=== PATIENT | female | born 1970 | race Caucasian/White ===

== ENCOUNTER 2016-11-14 12:44 | Emergency (ER) | payer MEDICAID ==
[~2016-11-14] VITALS: Wt 69.0 kg
[~2016-11-14 12:44] MED LIST: ACET1TAB40 PO; AZIT250T94 PO; BISM262O23 PO; CETI10CA PO; POLY10DR19 BOTH EYES; PREN-39 PO; ZOF8 PO
[2016-11-14] MEDS ORDERED: KETOROLAC 60 MG INJ IM STA (13:18)
--- NOTE | 2016-11-14 13:47 | ERD ---
ER Documentation Chief Complaint Date/Time DATE: 11/14/16 TIME: 13:46 Chief Complaint back pain no trauma no dysuria onset about 2 wks ago. HPI This is a 46-year-old female presents to the ER with back pain that started 2 weeks ago. Patient states that back pain is worse whenever she bends over whenever she moves. Patient denies any trauma. 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 Patient denies any cough or cold symptoms. She denies any chest pain or shortness of breath. Patient denies any flank pain , urinary frequency or dysuria. Patient states that back pain is sharp in quality the pain is constant. Patient has not tried anything for the pain. ROS 12 point review of systems was done, all negative except per HPI. Medications Home Meds Active Scripts Ibuprofen* (Motrin*) 600 Mg Tab, 600 MG PO Q6, #30 TAB Prov:BERNICE WETZEL 11/14/16 Orphenadrine Citrate (Norflex) 100 Mg Tablet.sa, 100 MG PO BID for 3 Days, TAB.SA Prov:BERNICE WETZEL 11/14/16 Polymyxin B Sulfate-TMP* (Polymyxin B-TMP Eye Drops*) 10 Ml Drops, 1 DROP BOTH EYES QID for 10 Days, EA Prov:IZABELA VACA MD 01/14/16 Cetirizine Hcl* (Zyrtec*) 10 Mg Capsule, 10 MG PO DAILY, #15 TAB.CHEW Prov:IZABELA VACA MD 01/14/16 Bismuth Subsalicylate* (Pepto-Bismol*) 262 Mg/15 Ml Oral.susp, 15 ML PO Q3H Y for DIARRHEA for 5 Days, ML Prov:IZABELA VACA MD 06/18/15 Acetaminophen-Codeine* (Acetaminophen-Cod #3*) 300-30 Mg Tab, 1 TAB PO Q4H Y for PAIN, #10 TAB Prov:IZABELA VACA MD 06/18/15 Azithromycin* (Zithromax*) 250 Mg Tablet, 250 MG PO .ZPACK DIRECTED, #6 TAB TAKE 500 MG (2 TABS) THE FIRST DAY THEN 250 MG (1 TAB) DAYS 2-5 Prov:IZABELA VACA MD 06/18/15 Ondansetron Hcl* (Zofran* ODT) 8 mg -ODT Tab.disper, 8 MG PO Q6H Y for NAUSEA AND OR VOMITING, #10 TAB Prov:IZABELA VACA MD 06/18/15 Reported Medications Vits W-Ca,Fe,Fa(<1MG) ( Vitamins) 1 Tab Tablet, 1 TAB PO DAILY 07/04/13 Allergies Allergies: Coded Allergies: No Known Allergy (Unverified , 01/14/16) PMhx/Soc History of Surgery: No Anesthesia Reaction: No Hx Neurological Disorder: No Hx Respiratory Disorders: No Hx Cardiac Disorders: No Hx Psychiatric Problems: No Hx Miscellaneous Medical Probl: No Hx Alcohol Use: No Hx Substance Use: No Hx Tobacco Use: No Physical Exam Vitals Vital Signs Date Time Temp Pulse Resp B/P Pulse Ox O2 Delivery O2 Flow Rate FiO2 11/14/16 12:54 98.7 98 21 124/58 98 Physical Exam GENERAL: The patient is well developed and appropriate for usual state of health , in no apparent distress. NECK: C-spine is soft and supple. There is no cervical lymphadenopathy. CHEST: Clear to auscultation bilaterally. There are no rales, wheezes or rhonchi. HEART: Regular rate and rhythm. No murmurs, clicks, rubs or gallops. ABDOMEN: Soft, nontender and nondistended. Good bowel sounds. No rebound or guarding. No gross peritonitis. No gross organomegaly or masses. No Pompa sign or McBurney point tenderness. No pulsatile abdominal mass. BACK: No midline or flank tenderness. Tender to palpation from T2-T4. Tense paraspinal muscles. Negative leg raise test. No step- offs. NEURO: Alert and oriented. SKIN: There is no apparent rash or petechia. The skin is warm and dry. Results 24 hrs Laboratory Tests Test 11/14/16 14:58 Bedside Urine pH (LAB) 7.0 Bedside Urine Protein (LAB) Negative Bedside Urine Glucose (UA) Negative Bedside Urine Ketones (LAB) Negative Bedside Urine Blood Negative Bedside Urine Nitrite (LAB) Negative Bedside Urine Leukocyte Esterase (L Negative Current Medications Medications (Trade) Dose Ordered Sig/Earnest Route PRN Reason Start Time Stop Time Status Last Admin Dose Admin Ketorolac Tromethamine (Toradol) 60 mg ONCE STAT IM 11/14/16 13:18 11/14/16 13:20 DC 11/14/16 14:46 Procedures/MDM Differential Diagnosis includes but is not limited to back strain, vertebral fracture, epidural abscess, cauda equina, herniated disc, AAA rupture, kidney stones, UTI, pyelonephritis. This is a 46-year-old female presents to the ER with mid back pain. At this time is no evidence of fracture or dislocation. Suspicion for pneumonia or any other intrathoracic abnormality is low. Suspicion for kidney involvement is low. This is likely muscular strain, pain is worse whenever patient is bending down or moving. Patient is afebrile and well-appearing. Patient will be sent home with ibuprofen and Norflex. She is to follow-up with her primary care doctor in 2 days or return to ER sooner if symptoms worsen. My medical decision making shared with the patient and agrees with plan. Departure Diagnosis: Primary Impression: Back pain Condition: Stable BERNICE WETZEL November 14, 2016 13:47
--- NOTE | 2016-11-14 14:22 | RADRPT ---
PROCEDURE: XR Chest AP portable CLINICAL INDICATION: Back pain TECHNIQUE: An AP portable radiograph of the chest was submitted. COMPARISON: None. FINDINGS: Support Hardware: None Cardiovascular: The cardiovascular silhouette appears unremarkable. A fat pad is seen off the cardia c apex. Lung Isaac: The lung isaac appear clear with no nodule, alveolar infiltrate, or interstitial promi nence evident. Pleural Spaces: No pneumothorax or pleural effusion is identified. Osseous Structures: Mild degenerative endplate changes are seen to the thoracic spine. Soft Tissues: The soft tissues appear unremarkable. IMPRESSION: 1. Mild degenerative thoracic spine changes. 2. Otherwise, unremarkable portable chest. Physician Wolf Date Time Electronically viewed and signed by Physician Wolf on 11/14/2016 14:22 /
--- NOTE | 2016-11-14 14:23 | RADRPT ---
PROCEDURE: XR Thoracic Spine CLINICAL INDICATION: Fall TECHNIQUE: 3 Views of the thoracic spine were submitted. COMPARISON: None FINDINGS: The osseous structures appear well mineralized and intact. No fracture or destructive process is ev ident. Very minimal degenerative endplate changes noted. The osseous elements align satisfactorily without subluxation. The disk spaces are adequately maintained. IMPRESSION: 1. Minimal degenerative endplate changes 2. Otherwise, unremarkable thoracic spine series. Physician Wolf Date Time Electronically viewed and signed by Vanessa Kenny Physician on 11/14/2016 14:23 /
[2016-11-14 14:57] LABS: URINE BLOOD (Dip) POC Negative (NEGATIVE)
[2016-11-14] MEDS ORDERED: ORPH100T PO (14:58)
[2016-11-14] MEDS ORDERED: IBUP-1542 PO (14:59)
== END 2016-11-14 15:04 | disposition home or self-care (01) ==
LOC: FTE 12:44
DX: M54.9 Dorsalgia, unspecified (principal)
CPT/HCPCS: 71010; 72072; 81003; J1885; 96372

== ENCOUNTER 2017-02-26 17:44 | Emergency (ER) | payer MEDICAID ==
[~2017-02-26] VITALS: Ht 157.5 cm; Wt 89.0 kg
[~2017-02-26 17:44] MED LIST changes: +IBUP-1542 PO; +ORPH100T PO
[2017-02-26 17:48] VITALS: Ht 157.5 cm; Wt 89.0 kg
[2017-02-26] MEDS ORDERED: KETOROLAC 30 MG INJ IV STA (18:01)
[2017-02-26] MEDS ORDERED: SOD CHLORIDE 0.9% 1,000 ML IV STA (18:01)
[2017-02-26 18:30] LABS: ADD UMIC YES; UR ASCORBIC ACID NEGATIVE (NEGATIVE); UR BACTERIA FEW /HPF (NONE SEEN); UR BILIRUBIN (Dip) NEGATIVE (NEGATIVE); UR BLOOD (Dip) 2+ mg/dL (NEGATIVE); UR CLARITY CLEAR (CLEAR); UR COLOR STRAW (YELLOW); UR GLUCOSE (Dip) NEGATIVE (NEGATIVE); UR KETONES (Dip) NEGATIVE (NEGATIVE); UR LEUKOCYTE ESTERASE (Dip) NEGATIVE Leu/ul (NEGATIVE); UR NITRITE (Dip) NEGATIVE (NEGATIVE); UR RBC 0 /HPF (0-5); UR SPECIFIC GRAVITY (Dip) 1.005 (1.003-1.030); UR SQUAMOUS EPITHELIAL CELL FEW /HPF (FEW); UR TOTAL PROTEIN (Dip) NEGATIVE (NEGATIVE); UR UROBILINOGEN (Dip) NEGATIVE (NEGATIVE)
[2017-02-26 18:33] LABS: BASOPHILS % 0.3 % (0.0-2.0); EOSINOPHILS # 0.2 10^3/ul (0.0-0.5); EOSINOPHILS % 2.6 % (0.0-7.0); HEMATOCRIT 33.5 % (37.0-47.0); HEMOGLOBIN 10.4 g/dl (12.0-16.0); LYMPHOCYTES # 1.8 10^3/ul (0.8-2.9); LYMPHOCYTES % 29.3 % (15.0-51.0); MEAN CORPUSCULAR HEMOGLOBIN 23.1 pg (29.0-33.0); MEAN CORPUSCULAR VOLUME 74.4 fl (82.0-101.0); MEAN PLATELET VOLUME 9.5 fl (7.4-10.4); MONOCYTE # 0.5 10^3/ul (0.3-0.9); MONOCYTES % 7.5 % (0.0-11.0); PLATELET COUNT 224 10^3/UL (140-415); RED CELL DISTRIBUTION WIDTH 17.4 % (11.5-14.5); WHITE BLOOD COUNT 6.3 10^3/ul (4.8-10.8)
--- NOTE | 2017-02-26 18:34 | RADRPT ---
PROCEDURE: Right upper quadrant ultrasound CLINICAL INDICATION: Abdominal pain TECHNIQUE: Multiple real-time images were acquired of the patient's abdomen and right retroperiton eum utilizing a high resolution transducer. COMPARISON: None FINDINGS: The liver is increased in echogenicity and measures 17.2 cm. No focal hepatic masses are seen. The gallbladder is physiologically distended. There is no evidence of gallstones, gallbladder wall thi ckening, or pericholecystic fluid. The intra and extrahepatic bile ducts are normal in caliber. Th e common bile duct measures 4.8 mm. Midline images demonstrate the pancreas head to be normal in echogenicity without obvious inflammato ry change. The body and tail are suboptimally seen. Survey views of the right kidney demonstrate no evidence of hydronephrosis or renal calculi. The ri ght kidney measures 10.6 cm. There is questionable perinephric fluid seen on the single image. IMPRESSION: 1. No evidence of cholelithiasis or acute cholecystitis. 2. Fatty change liver 3. Questionable perinephric fluid seen only on a single image. This could suggest pyelonephritis in the right clinical setting. Recommend correlation with urinalysis. 4. Pancreas suboptimally seen RPTAT: HH .Tigre Jalloh MD, Date Time Electronically viewed and signed by .Tigre Jalloh MD, on 02/26/2017 18:34 .W/
[2017-02-26 19:01] LABS: ALBUMIN 4.4 g/dl (3.3-4.9); ALBUMIN/GLOBULIN RATIO 1.15; BILIRUBIN,INDIRECT 0.2 mg/dl (0-1.1); BILIRUBIN,TOTAL 0.2 mg/dl (0.2-1.3); CALCIUM 9.1 mg/dl (8.4-10.2); CREATININE 0.52 mg/dl (0.44-1.00); TOTAL PROTEIN 8.2 g/dl (6.1-8.1)
[2017-02-26] MEDS ORDERED: IOHEXOL 300MG/ML 150 ML BTL ONE (20:09)
[2017-02-26] MEDS ORDERED: SOD CHLORIDE 0.9% 100 ML ONE (20:09)
--- NOTE | 2017-02-26 21:22 | RADRPT ---
PROCEDURE: CT Abdomen and Pelvis with contrast. CLINICAL INDICATION: Abdominal pain TECHNIQUE: CT scan of the abdomen and pelvis with contrast was performed on a multi-detector high- resolution CT scanner. The patient was scanned following the intravenous administration of 100 cc o f Omnipaque 300. Coronal and sagittal reformatted images were obtained from the axial source images . Images were reviewed on a high-resolution PACS workstation. The total exam CTDI equals 21.13 mGy a nd the total exam DLP equals 1088.06 mGy-cm. One or more the following dose reduction techniques were utilized: Automated exposure control, adjus tment of the mA and / or kV according to patient's size, or use of iterative reconstruction techniqu e. COMPARISON: Right upper quadrant abdominal ultrasound of 02/26/2017 FINDINGS: The lung bases are clear. No pneumoperitoneum is seen. Minimal hepatic steatosis. No abnormality i s seen in the gallbladder. There is a small hiatal hernia. No biliary dilatation is seen. No abno rmality seen in the pancreas, spleen, adrenals or kidneys. Small amount calcification in abdominal aorta. No abdominal aortic aneurysm is seen. There is an enlarged uterus measuring 13.9 x 5.2 x 7. 3 cm with apparent prominent Nabothian cysts the largest 2.2 cm. There is impression on the left la teral and left posterior lateral aspect of the bladder by the enlarged uterus. No definite abnormal ity of the adnexal regions is seen on CT. There is the suggestion of a 1.5 cm right ovarian follicl e. There is a very small umbilical hernia containing fat only. There is appearance of a small amou nt of free fluid in the right cul-de-sac. No definite abnormality of the colon is seen. There is p atient motion on multiple images. There is no evidence of acute appendicitis. There is the appearance of an unremarkable appendix. Several prominent lymph nodes apparent in mesentery in the right lower quadrant of the abdomen the largest approximately 1.1 cm short-axis which could be secon rosas to mesenteric adenitis. No dilated small bowel loops are seen. Mild degenerative changes at s acroiliac joints. Mild degenerative changes in lumbar spine. Likely small bone island in the right superior pubic ramus. IMPRESSION: Mild hepatic steatosis. Small hiatal hernia. Enlarged uterus with multiple apparent prominent Nabo thian cysts. Small amount of free fluid in right cul-de-sac which may be physiologic. Several promin ent lymph nodes apparent in mesentery in the right lower quadrant of the abdomen the largest approxi mately 1.1 cm short-axis which could be secondary to mesenteric adenitis. Please see above. RPTAT: HJES .Aftab Mendoza MD, Date Time Electronically viewed and signed by .Aftab Mendoza MD, on 02/26/2017 21:21 .S/
[2017-02-26] MEDS ORDERED: HYDR-906 PO (21:29)
[2017-02-26 22:01] VITALS: BP 146/80; PULSE 78; RESP 18; TEMP 98
--- NOTE | 2017-02-26 22:25 | ERD ---
ER Documentation Chief Complaint Date/Time DATE: 02/26/17 TIME: 22:20 Chief Complaint ap, diarrhea HPI 46-year-old female coming in complaining of abdominal pain 4 days. Patient denies any vomiting but has generalized nausea. Patient states pain comes and goes. Pain is epigastric region. Denies fever. Denies chest pain or shortness of breath. Has not taken medications for symptoms. Has normal urination and bowel movement. Has never had this pain before. Does not know what caused the pain to come and go. Rates the pain a 4 out of 10. Medical problems: Denies NKDA Surgical history: ROS All systems reviewed and are negative except as per history of present illness. Medications Home Meds Active Scripts Hydrocodone/Acetaminophen (Polacca 5-325 Tablet) 1 Each Tablet, 1 TAB PO Q6H Y for PAIN, #7 TAB Prov:ANTHONY BRUSH PA-C 02/26/17 Ibuprofen* (Motrin*) 600 Mg Tab, 600 MG PO Q6, #30 TAB Prov:BERNICE WETZEL 11/14/16 Orphenadrine Citrate (Norflex) 100 Mg Tablet.sa, 100 MG PO BID for 3 Days, TAB.SA Prov:BERNICE WETZEL 11/14/16 Polymyxin B Sulfate-TMP* (Polymyxin B-TMP Eye Drops*) 10 Ml Drops, 1 DROP BOTH EYES QID for 10 Days, EA Prov:IZABELA VACA MD 01/14/16 Cetirizine Hcl* (Zyrtec*) 10 Mg Capsule, 10 MG PO DAILY, #15 TAB.CHEW Prov:IZABELA VACA MD 01/14/16 Bismuth Subsalicylate* (Pepto-Bismol*) 262 Mg/15 Ml Oral.susp, 15 ML PO Q3H Y for DIARRHEA for 5 Days, ML Prov:IZABELA VACA MD 06/18/15 Acetaminophen-Codeine* (Acetaminophen-Cod #3*) 300-30 Mg Tab, 1 TAB PO Q4H Y for PAIN, #10 TAB Prov:IZABELA VACA MD 06/18/15 Azithromycin* (Zithromax*) 250 Mg Tablet, 250 MG PO .RaiPACK DIRECTED, #6 TAB TAKE 500 MG (2 TABS) THE FIRST DAY THEN 250 MG (1 TAB) DAYS 2-5 Prov:IZABELA VACA MD 06/18/15 Ondansetron Hcl* (Zofran* ODT) 8 mg -ODT Tab.disper, 8 MG PO Q6H Y for NAUSEA AND OR VOMITING, #10 TAB Prov:IZABELA VACA MD 06/18/15 Reported Medications Vits W-Ca,Fe,Fa(<1MG) ( Vitamins) 1 Tab Tablet, 1 TAB PO DAILY 07/04/13 Allergies Allergies: Coded Allergies: No Known Allergy (Unverified , 01/14/16) PMhx/Soc History of Surgery: No Anesthesia Reaction: No Hx Neurological Disorder: No Hx Respiratory Disorders: No Hx Cardiac Disorders: No Hx Psychiatric Problems: No Hx Miscellaneous Medical Probl: No Hx Alcohol Use: No Hx Substance Use: No Hx Tobacco Use: No Physical Exam Vitals Vital Signs Date Time Temp Pulse Resp B/P Pulse Ox O2 Delivery O2 Flow Rate FiO2 02/26/17 22:01 98.0 78 18 146/80 99 Room Air 02/26/17 17:48 98.3 79 18 129/65 99 Physical Exam GENERAL: The patient is well-appearing, well-nourished, in no acute distress CHEST: Clear to auscultation bilaterally. There are no rales, wheezes or rhonchi. HEART: Regular rate and rhythm. No murmurs, clicks, rubs or gallops. No S3 or S4. ABDOMEN: Mild tenderness palpation in epigastric region. No rigidity. No distention. No rebound tenderness. Normoactive bowel sounds heard. BACK: No midline or flank tenderness. Result Diagram: 02/26/17181902/26/171819 Results 24 hrs Laboratory Tests Test 02/26/17 18:05 02/26/17 18:20 Urine Color STRAW Urine Clarity CLEAR Urine pH 8.0 Urine Specific [place] 1.005 Urine Ketones NEGATIVEmg/dL Urine Nitrite NEGATIVEmg/dL Urine Bilirubin NEGATIVEmg/dL Urine Urobilinogen NEGATIVEmg/dL Urine Leukocyte Esterase NEGATIVELeu/ul Urine Microscopic RBC 0/HPF Urine Microscopic WBC 1/HPF Urine Squamous Epithelial Cells FEW/HPF Urine Bacteria FEW/HPF Urine Hemoglobin 2+mg/dL Urine Glucose NEGATIVEmg/dL Urine Total Protein NEGATIVEmg/dl White Blood Count 6.310^3/ul Red Blood Count 4.5010^6/ul Hemoglobin 10.4g/dl Hematocrit 33.5% Mean Corpuscular Volume 74.4fl Mean Corpuscular Hemoglobin 23.1pg Mean Corpuscular Hemoglobin Concent 31.0g/dl Red Cell Distribution Width 17.4% Platelet Count 48937^3/UL Mean Platelet Volume 9.5fl Neutrophils % 60.0% Lymphocytes % 29.3% Monocytes % 7.5% Eosinophils % 2.6% Basophils % 0.3% Nucleated Red Blood Cells % 0.0/100WBC Neutrophils # (Manual) 410^3/ul Lymphocytes # 1.810^3/ul Monocytes # 0.510^3/ul Eosinophils # 0.210^3/ul Basophils # 0.010^3/ul Nucleated Red Blood Cells # 0.010^3/ul Sodium Level 141mmol/L Potassium Level 4.0mmol/L Chloride Level 99mmol/L Carbon Dioxide Level 28mmol/L Anion Gap 18 Blood Urea Nitrogen 7mg/dl Creatinine 0.52mg/dl Glucose Level 88mg/dl Calcium Level 9.1mg/dl Total Bilirubin 0.2mg/dl Direct Bilirubin 0.00mg/dl Indirect Bilirubin 0.2mg/dl Aspartate Amino Transf (AST/SGOT) 47IU/L Alanine Aminotransferase (ALT/SGPT) 70IU/L Alkaline Phosphatase 96IU/L Total Protein 8.2g/dl Albumin 4.4g/dl Globulin 3.80g/dl Albumin/Globulin Ratio 1.15 Lipase 43U/L Serum HCG, Qualitative NEGATIVE Current Medications Medications (Trade) Dose Ordered Sig/Earnest Route PRN Reason Start Time Stop Time Status Last Admin Dose Admin Sodium Chloride (NS) 1,000 ml @ 1,000 mls/hr Q1H STAT IV 02/26/17 18:01 02/26/17 19:00 DC 02/26/17 18:17 Ketorolac Tromethamine (Toradol) 30 mg ONCE STAT IV 02/26/17 18:01 02/26/17 18:05 DC 02/26/17 18:18 IV Flush 10 ml 10 ml STK-MED ONCE .ROUTE 02/26/17 20:09 02/26/17 20:10 DC 02/26/17 20:34 Sodium Chloride (NS) 100 ml @ ud STK-MED ONCE .ROUTE 02/26/17 20:09 02/26/17 20:10 DC 02/26/17 20:35 Iohexol (Omnipaque 300mg/ ml) 150 ml STK-MED ONCE .ROUTE 02/26/17 20:09 02/26/17 20:10 DC 02/26/17 20:35 Procedures/MDM DIAGNOSTIC IMAGING REPORT Patient: TAYE ANGELES : 1970 Age: 46 Sex: F MR #: [id number] DOS: 02/26/17 1801 Ordering MD: EARL BRUSH PA-C Location: [facility] Room/Bed: PROCEDURE: Right upper quadrant ultrasound CLINICAL INDICATION: Abdominal pain TECHNIQUE: Multiple real-time images were acquired of the patient's abdomen and right retroperitoneum utilizing a high resolution transducer. COMPARISON: None FINDINGS: The liver is increased in echogenicity and measures 17.2 cm. No focal hepatic masses are seen. The gallbladder is physiologically distended. There is no evidence of gallstones, gallbladder wall thickening, or pericholecystic fluid. The intra and extrahepatic bile ducts are normal in caliber. The common bile duct measures 4.8 mm. Midline images demonstrate the pancreas head to be normal in echogenicity without obvious inflammatory change. The body and tail are suboptimally seen. Survey views of the right kidney demonstrate no evidence of hydronephrosis or renal calculi. The right kidney measures 10.6 cm. There is questionable perinephric fluid seen on the single image. IMPRESSION: 1. No evidence of cholelithiasis or acute cholecystitis. 2. Fatty change liver 3. Questionable perinephric fluid seen only on a single image. This could suggest pyelonephritis in the right clinical setting. Recommend correlation with urinalysis. 4. Pancreas suboptimally seen DIAGNOSTIC IMAGING REPORT Patient: TAYE ANGELES : 1970 Age: 46 Sex: F MR #: [id number] DOS: 02/26/17 1854 Ordering MD: EARL BRUSH PA-C Location: [facility] Room/Bed: PROCEDURE: CT Abdomen and Pelvis with contrast. CLINICAL INDICATION: Abdominal pain TECHNIQUE: CT scan of the abdomen and pelvis with contrast was performed on a multi-detector high-resolution CT scanner. The patient was scanned following the intravenous administration of 100 cc of Omnipaque 300. Coronal and sagittal reformatted images were obtained from the axial source images. Images were reviewed on a high-resolution PACS workstation. The total exam CTDI equals 21.13 mGy and the total exam DLP equals 1088.06 mGy-cm. One or more the following dose reduction techniques were utilized: Automated exposure control, adjustment of the mA and / or kV according to patient's size, or use of iterative reconstruction technique. COMPARISON: Right upper quadrant abdominal ultrasound of 02/26/2017 FINDINGS: The lung bases are clear. No pneumoperitoneum is seen. Minimal hepatic steatosis. No abnormality is seen in the gallbladder. There is a small hiatal hernia. No biliary dilatation is seen. No abnormality seen in the pancreas, spleen, adrenals or kidneys. Small amount calcification in abdominal aorta. No abdominal aortic aneurysm is seen. There is an enlarged uterus measuring 13.9 x 5.2 x 7.3 cm with apparent prominent Nabothian cysts the largest 2.2 cm. There is impression on the left lateral and left posterior lateral aspect of the bladder by the enlarged uterus. No definite abnormality of the adnexal regions is seen on CT. There is the suggestion of a 1.5 cm right ovarian follicle. There is a very small umbilical hernia containing fat only. There is appearance of a small amount of free fluid in the right cul-de-sac. No definite abnormality of the colon is seen. There is patient motion on multiple images. There is no evidence of acute appendicitis. There is the appearance of an unremarkable appendix. Several prominent lymph nodes apparent in mesentery in the right lower quadrant of the abdomen the largest approximately 1.1 cm short-axis which could be secondary to mesenteric adenitis. No dilated small bowel loops are seen. Mild degenerative changes at sacroiliac joints. Mild degenerative changes in lumbar spine. Likely small bone island in the right superior pubic ramus. IMPRESSION: Mild hepatic steatosis. Small hiatal hernia. Enlarged uterus with multiple apparent prominent Nabothian cysts. Small amount of free fluid in right cul-de- sac which may be physiologic. Several prominent lymph nodes apparent in mesentery in the right lower quadrant of the abdomen the largest approximately 1.1 cm short-axis which could be secondary to mesenteric adenitis. Please see above. ER Course: 1 L normal saline given in ED. IV Toradol given in the ER. MDM: 46-year-old female complaining of generalized abdominal pain. I have low suspicion for choledocholithiasis, cholecystitis, cholangitis, pancreatitis, bowel obstruction, appendicitis, or pelvic emergency. Patient's CT scan is within normal limits and patient's blood work is within normal limits. Patient' s ultrasound does not show signs of pericholecystic fluid or enlarged gallbladder wall. Patient does have mesenteric adenitis being the source of patient's pain however I have low suspicion for acute abdominal emergency at this time. I have low suspicion for nephrolithiasis, UTI, or pyelonephritis. I have low suspicion for ectopic . Patient's pain is well controlled in the emergency room. Patient will be discharged with pain medication. Patient is given strict ER precautions and recommended to follow-up with primary care doctor within 1-2 days for close evaluation. All questions answered at the time of discharge. Patient understood to comply plan. Departure Diagnosis: Primary Impression: Abdominal pain Condition: Stable Patient Instructions: Abdominal Pain Referrals: [facility] YOU HAVE RECEIVED A MEDICAL SCREENING EXAM AND THE RESULTS INDICATE THAT YOU DO NOT HAVE A CONDITION THAT REQUIRES URGENT TREATMENT IN THE EMERGENCY DEPARTMENT. FURTHER EVALUATION AND TREATMENT OF YOUR CONDITION CAN WAIT UNTIL YOU ARE SEEN IN YOUR DOCTORS OFFICE WITHIN THE NEXT 1-2 DAYS. IT IS YOUR RESPONSIBILITY TO MAKE AN APPOINTMENT FOR FOLOW-UP CARE. IF YOU HAVE A PRIMARY DOCTOR --you should call your primary doctor and schedule an appointment IF YOU DO NOT HAVE A PRIMARY DOCTOR YOU CAN CALL OUR PHYSICIAN REFERRAL HOTLINE AT IF YOU CAN NOT AFFORD TO SEE A PHYSICIAN YOU CAN CHOSE FROM THE FOLLOWING [facility] [address] [facility] [facility] [address] [facility] [facility] [address] [facility] [facility] [address] [facility]. [facility] [address] [facility]. [facility]. [address] Additional Instructions: FOLLOW UP WITH YOUR PRIMARY CARE PHYSICIAN TOMORROW.Return to this facility if you are not improving as expected. ANTHONY BRUSH PA-C Feb 26, 2017 22:25
== END 2017-02-26 22:03 | disposition home or self-care (01) ==
LOC: FTE 17:44
DX: R10.13 Epigastric pain (principal)
CPT/HCPCS: 36415; 74177; 76705; 80053; 81001; 83690; 84703; 85025; 96374; J1885; J7030; Q9967; Z7502; Z7610

== ENCOUNTER 2017-10-15 14:22 | Emergency (ER) | END 2017-10-15 16:29 | disposition home or self-care (01) ==

== ENCOUNTER 2018-05-06 18:59 | Emergency (ER) | END 2018-05-06 20:43 | disposition home or self-care (01) ==

== ENCOUNTER 2018-08-07 12:26 | Emergency (ER) | payer MEDICAID ==
[~2018-08-07] VITALS: Wt 80.0 kg
[~2018-08-07 12:26] MED LIST changes: +ACET500C5 PO; +AZIT250T PO; -AZIT250T94 PO; +BENZ-6 PO; +HYDR-4011 PO; +PROM6.2515 PO
[2018-08-07 12:27] VITALS: BP 122/63; PULSE 77; RESP 18
[2018-08-07] MEDS ORDERED: FLUC150T PO (13:36)
[2018-08-07] MEDS ORDERED: HC30CR25 TOP (13:36)
[2018-08-07] MEDS ORDERED: CLOT30CR24 TOP (13:36)
--- NOTE | 2018-08-07 13:39 | ERD ---
ER Documentation Chief Complaint Chief Complaint VAGINAL ITCHING HPI This 48-year-old female presents with few day history of some itching around the vaginal area. She also has a lesion on her left big toe. She has a fevers, vomiting, abdominal pain, dysuria. She denies . ROS All systems reviewed and are negative except as per history of present illness. Medications Home Meds Active Scripts Clotrimazole* (Clotrimazole* AF) 1% - 30 Gm Cream.gm., 1 APPLIC TOP BID for 7 Days, TUB Prov:IZABELA VACA MD 08/07/18 Fluconazole* (Diflucan*) 150 Mg Tablet, 150 MG PO ONCE, #1 TAB Prov:IZABELA VACA MD 08/07/18 Hydrocortisone* Topical (Hydrocortisone* Topical) 2.5%-28.3 Gm Cream..g., 1 APPLIC TOP BID for 7 Days, #1 TUB Prov:IZABELA VACA MD 08/07/18 Benzonatate* (Tessalon Perle*) 100 Mg Capsule, 100 MG PO Q8H PRN for COUGH, #30 CAP Prov:ANTHONY BRUSH PA-C 05/06/18 Promethazine Hcl* (Promethazine Hcl* Syrup) 6.25 Mg/5 Ml Syrup, 6.25 MG PO Q6H PRN for COUGH, #100 ML Prov:ANTHONY BRUSH PA-C 05/06/18 Acetaminophen* (Tylophen*) 500 Mg Capsule, 1 CAP PO Q6H PRN for PAIN AND OR ELEVATED TEMP, #20 CAP Prov:ANDREI FROST PA-C 10/15/17 Hydrocodone/Acetaminophen ([place] 5-325 Tablet) 1 Each Tablet, 1 TAB PO Q6H PRN for PAIN, #7 TAB Prov:ANTHONY BRUSH PA-C 02/26/17 Ibuprofen* (Motrin*) 600 Mg Tab, 600 MG PO Q6, #30 TAB Prov:BERNICE WETZEL 11/14/16 Orphenadrine Citrate (Norflex) 100 Mg Tablet.sa, 100 MG PO BID for 3 Days, TAB.SA Prov:BERNICE WETZEL 11/14/16 Polymyxin B Sulfate-TMP* (Polymyxin B-TMP Eye Drops*) 10 Ml Drops, 1 DROP BOTH EYES QID for 10 Days, EA Prov:IZABELA VACA MD 01/14/16 Cetirizine Hcl* (Zyrtec*) 10 Mg Capsule, 10 MG PO DAILY, #15 TAB.CHEW Prov:IZABELA VACA MD 01/14/16 Bismuth Subsalicylate* (Pepto-Bismol*) 262 Mg/15 Ml Oral.susp, 15 ML PO Q3H PRN for DIARRHEA for 5 Days, ML Prov:IZABELA VACA MD 06/18/15 Acetaminophen-Codeine* (Acetaminophen-Cod #3*) 300-30 Mg Tab, 1 TAB PO Q4H PRN for PAIN, #10 TAB Prov:IZABELA VACA MD 06/18/15 Azithromycin* (Zithromax*) 250 Mg Tablet, 250 MG PO .ZPACK DIRECTED, #6 TAB TAKE 500 MG (2 TABS) THE FIRST DAY THEN 250 MG (1 TAB) DAYS 2-5 Prov:IZABELA VACA MD 06/18/15 Ondansetron Hcl* (Zofran* ODT) 8 mg -ODT Tab.disper, 8 MG PO Q6H PRN for NAUSEA AND OR VOMITING, #10 TAB Prov:IZABELA VACA MD 06/18/15 Reported Medications Vits W-Ca,Fe,Fa(<1MG) ( Vitamins) 1 Tab Tablet, 1 TAB PO DAILY 07/04/13 Allergies Allergies: Coded Allergies: No Known Allergy (Unverified , 05/06/18) PMhx/Soc History of Surgery: Yes ( X3) Anesthesia Reaction: No Hx Neurological Disorder: No Hx Respiratory Disorders: No Hx Cardiac Disorders: No Hx Psychiatric Problems: No Hx Miscellaneous Medical Probl: No Hx Alcohol Use: No Hx Substance Use: No Hx Tobacco Use: No Smoking Status: Never smoker Physical Exam Vitals Vital Signs Date Temp Pulse Resp B/P (MAP) Pulse Ox O2 O2 Flow FiO2 Time Delivery Rate 08/07/18 98.5 77 18 122/63 99 12:27 (82) Physical Exam Const: No acute distress Head: Atraumatic Eyes: Normal Conjunctiva ENT: Normal External Ears, Nose and Mouth. Neck: Full range of motion. No meningismus. Resp: Clear to auscultation bilaterally Cardio: Regular rate and rhythm, no murmurs Abd: Soft, non tender, non distended. Normal bowel sounds. Vaginal exam with siderographer shows mild irritation around the intertrigo area around the external vaginal area. No significant tenderness, induration. No CMT. Skin: No petechiae or rashes. Slight raised x-ray rash in the left big toe. No induration, streaking. Back: No midline or flank tenderness Ext: No cyanosis, or edema Neur: Awake and alert Psych: Normal Mood and Affect Procedures/MDM Patient presents with vaginal itching and nonspecific dermatitis without findings of life-threatening rashes, purpura, signs of cellulitis. She will be treated empirically with Diflucan and Lotrimin for vaginitis and hydrocortisone for nonspecific rash or itching. The patient was stable with no new complaints during the ER course. Clinically, there is no current evidence to suggest meningitis, sepsis, acute abdomen, pneumonia, stroke, acute coronary syndrome, pulmonary embolism, aortic dissection or any other emergent condition appearing to require further evaluation or hospitalization. Patient counseled regarding my diagnostic impression and care plan. Prior to discharge all questions answered. Pt agrees with treatment plan and understands strict return precautions. Pt is instructed to follow up with primary care provider within 24- 48 hours. Precautionary instructions provided including instructions to return to the ER if not improving or for any worsening or changing symptoms or concerns. Departure Diagnosis: Primary Impression: Rash Additional Impression: Disorder of female genital organ Condition: Stable Patient Instructions: Vaginal Infection: Yeast (Candidiasis), Dermatitis, Non- Specific IZABELA VACA MD Aug 07, 2018 13:39
== END 2018-08-07 13:50 | disposition home or self-care (01) ==
LOC: FTE 12:26
DX: N94.89 Other specified conditions associated with female genital organs and menstrual cycle (principal); R21 Rash and other nonspecific skin eruption
CPT/HCPCS: 99283

== ENCOUNTER 2018-09-26 12:32 | Emergency (ER) | payer MEDICAID ==
[~2018-09-26] VITALS: Ht 154.9 cm; Wt 80.0 kg
[~2018-09-26 12:32] MED LIST changes: +CLOT30CR24 TOP; +FLUC150T PO; +HC30CR25 TOP
[2018-09-26 12:43] VITALS: Ht 154.9 cm; Wt 80.0 kg
[2018-09-26] MEDS ORDERED: ALBU18HF INHALATION (15:31)
[2018-09-26] MEDS ORDERED: FLUT9.9S NASAL (15:31)
[2018-09-26] MEDS ORDERED: BENZ-6 PO (15:31)
--- NOTE | 2018-09-26 15:36 | ERD ---
ER Documentation Chief Complaint Chief Complaint COUGH WITH FEVER & CONGESTION X 2 WEEKS HPI During the patient's encounter translation services were utilized Language: Setswana Source: In person 48-year-old female presents to the emergency room because of 1-1/2 weeks of symptoms that include rhinorrhea nasal congestion and dry nonproductive cough. Subjective fevers at home but no documented temperatures. The patient is a non- smoker without history of asthma or lung disease. The patient denies any generalized malaise or significant shortness of breath. She is concerned because of the persistence of cough. ROS All systems reviewed and are negative except as per history of present illness. Medications Home Meds Active Scripts Benzonatate* (Tessalon Perle*) 100 Mg Capsule, 100 MG PO Q8H PRN for COUGH for 5 Days, CAP Prov:NICHOLAS MARKS MD 09/26/18 Fluticasone Propionate (Flonase Allergy Relief) 9.9 Ml [place].susp, 1 SPRAY NASAL BID for 7 Days, #1 BOTTLE TO EACH NOSTRIL Prov:NICHOLAS MARKS MD 09/26/18 Albuterol Sulfate* (Ventolin HFA*) 18 Gm Hfa.aer.ad, 2 PUFF INHALATION Q4H, #1 INHALER Prov:NICHOLAS MARKS MD 09/26/18 Clotrimazole* (Clotrimazole* AF) 1% - 30 Gm Cream.gm., 1 APPLIC TOP BID for 7 Days, TUB Prov:IZABELA VACA MD 08/07/18 Fluconazole* (Diflucan*) 150 Mg Tablet, 150 MG PO ONCE, #1 TAB Prov:IZABELA VACA MD 08/07/18 Hydrocortisone* Topical (Hydrocortisone* Topical) 2.5%-28.3 Gm Cream..g., 1 APPLIC TOP BID for 7 Days, #1 TUB Prov:IZABELA VACA MD 08/07/18 Benzonatate* (Tessalon Perle*) 100 Mg Capsule, 100 MG PO Q8H PRN for COUGH, #30 CAP Prov:ANTHONY BRUSH PA-C 05/06/18 Promethazine Hcl* (Promethazine Hcl* Syrup) 6.25 Mg/5 Ml Syrup, 6.25 MG PO Q6H PRN for COUGH, #100 ML Prov:ANTHONY BRUSH PA-C 05/06/18 Acetaminophen* (Tylophen*) 500 Mg Capsule, 1 CAP PO Q6H PRN for PAIN AND OR ELEVATED TEMP, #20 CAP Prov:ANDREI FROST PA-C 10/15/17 Hydrocodone/Acetaminophen ([place] 5-325 Tablet) 1 Each Tablet, 1 TAB PO Q6H PRN for PAIN, #7 TAB Prov:ANTHONY BRUSH PA-C 02/26/17 Ibuprofen* (Motrin*) 600 Mg Tab, 600 MG PO Q6, #30 TAB Prov:BERNICE WETZEL 11/14/16 Orphenadrine Citrate (Norflex) 100 Mg Tablet.sa, 100 MG PO BID for 3 Days, TAB.SA Prov:BERNICE WETZEL 11/14/16 Polymyxin B Sulfate-TMP* (Polymyxin B-TMP Eye Drops*) 10 Ml Drops, 1 DROP BOTH EYES QID for 10 Days, EA Prov:IZABELA VACA MD 01/14/16 Cetirizine Hcl* (Zyrtec*) 10 Mg Capsule, 10 MG PO DAILY, #15 TAB.CHEW Prov:IZABELA VACA MD 01/14/16 Bismuth Subsalicylate* (Pepto-Bismol*) 262 Mg/15 Ml Oral.susp, 15 ML PO Q3H PRN for DIARRHEA for 5 Days, ML Prov:IZABELA VACA MD 06/18/15 Acetaminophen-Codeine* (Acetaminophen-Cod #3*) 300-30 Mg Tab, 1 TAB PO Q4H PRN for PAIN, #10 TAB Prov:IZABELA VACA MD 06/18/15 Azithromycin* (Zithromax*) 250 Mg Tablet, 250 MG PO .AMIRA DIRECTED, #6 TAB TAKE 500 MG (2 TABS) THE FIRST DAY THEN 250 MG (1 TAB) DAYS 2-5 Prov:IZABELA VACA MD 06/18/15 Ondansetron Hcl* (Zofran* ODT) 8 mg -ODT Tab.disper, 8 MG PO Q6H PRN for NAUSEA AND OR VOMITING, #10 TAB Prov:IZABELA VACA MD 06/18/15 Reported Medications Vits W-Ca,Fe,Fa(<1MG) ( Vitamins) 1 Tab Tablet, 1 TAB PO DAILY 07/04/13 Allergies Allergies: Coded Allergies: No Known Allergy (Unverified , 05/06/18) PMhx/Soc History of Surgery: Yes ( X3) Anesthesia Reaction: No Hx Neurological Disorder: No Hx Respiratory Disorders: No Hx Cardiac Disorders: No Hx Psychiatric Problems: No Hx Miscellaneous Medical Probl: No Hx Alcohol Use: No Hx Substance Use: No Hx Tobacco Use: No FmHx Family History: No diabetes Physical Exam Vitals Vital Signs Date Temp Pulse Resp B/P (MAP) Pulse Ox O2 O2 Flow FiO2 Time Delivery Rate 09/26/18 97.8 68 18 144/67 100 12:43 (92) Physical Exam General: Well developed, well nourished, no acute distress Head: Normocephalic, atraumatic. Eyes: Pupils equally reactive, EOM intact ENT: Moist mucous membranes Neck: Supple, no lymphadenopathy Respiratory: Lungs clear bilaterally, no distress Cardiovascular: RRR, no murmurs, rubs, or gallops Abdominal: Soft, non-tender, non-distended, no peritoneal signs : Deferred MSK: No edema, no unilateral swelling, 5/5 strength Neurologic: Alert and oriented, moving all extremities, normal speech, no focal weakness, no cerebellar signs Skin: No rash Psych: Normal mood Procedures/MDM The patient's clinical presentation is very consistent with an acute viral syndrome. This is likely consistent with acute bronchitis. The patient has an oxygen saturation of 100% and very clear lung sounds. For this reason I do not believe x-ray imaging is indicated. The patient does not require antibiotics either. This is likely treatable with symptom control. The patient does not exhibit any clinical signs or symptoms concerning for serious bacterial infection or systemic illness. Based on history and clinical exam findings the patient does not appear to have evidence of pneumonia, strep pharyngitis, urinary tract infection, bacteremia, sepsis, or meningitis. For these reasons I do not believe it is necessary to obtain laboratory testing or diagnostic imaging. I believe it would be appropriate for symptom control, and close outpatient primary care follow-up. We discussed follow up with the patient's primary care doctor within 24 to 48 hours as needed. We also discussed return to the emergency room for worsening symptoms or worsening condition. Discharge Medications: Albuterol, Flonase, Tessalon Perle Departure Diagnosis: Primary Impression: Acute bronchitis Bronchitis organism: unspecified organism Qualified Codes: J20.9 - Acute bronchitis, unspecified Condition: Stable Patient Instructions: Acute Bronchitis [facility] Usted se velasquez hecho un examen mdico de control que le indica que no est en maximiliano condicin que requiera tratamiento urgente en el Departamento de Emergencia. Un estudio ms profundo y el tratamiento de garza condicin pueden esperar sin ningn riesgo hasta que usted sea atendida/o en el consultorio de garza mdico o maximiliano clnica. Es responsabilidad suya arreglar maximiliano irene para el seguimiento del carey. MANEJO DE CONDICIONES NO URGENTES EN EL FUTURO 1) Si usted tiene un mdico de atencin primaria: Usted debera llamar a garza mdico de atencin primaria antes de venir al departamento de emergencia. Despus de las horas de consultorio, garza doctor o garza asociado/a est disponible por telfono. El mdico o enfermero de leonel en el servicio telefnico puede asesorarle por chelly medio para atender el problema, o carey contrario se puede programar maximiliano irene. 2) Si usted no tiene un mdico de atencin primaria: Llame al mdico o clnica de referencia que aparece abajo joelle las horas de consultorio para hacer maximiliano irene para que le vean. CLINICAS: [facility] [phone] [address] [facility] [phone] [facility] [phone] [facility] [phone] [address] [facility] [phone] [address] [facility] [phone] [facility] () Renata se velasquez hecho un examen mdico de control que le indica que no est en maximiliano condicin que requiera tratamiento urgente en el Departamento de Emergencia. Un estudio ms profundo y el tratamiento de garza condicin pueden esperar sin ningn riesgo hasta que usted sea atendida/o en el consultorio de garza mdico o maximiliano clnica. Es responsabilidad suya arreglar maximiliano irene para el seguimiento del carey. MANEJO DE CONDICIONES NO URGENTES EN EL FUTURO 1) Si usted tiene un mdico de atencin primaria: Usted debera llamar a garza mdico de atencin primaria antes de venir al departamento de emergencia. Despus de las horas de consultorio, garza doctor o garza asociado/a est disponible por telfono. El mdico o enfermero de leonel en el servicio telefnico puede asesorarle por chelly medio para atender el problema, o carey contrario se puede programar maximiliano irene. 2) Si usted no tiene un mdico de atencin primaria: Llame al mdico o condado institucions de referencia que aparece abajo joelle las horas de consultorio para hacer maximiliano irene para que le vean. SI USTED NO PUEDE PAGAR PARA ALEXANDRA UN MEDICO puede ir a: [facility] [id number] [place] [address] [facility] [address] [place] [address] [facility] [address] [place] [address] [facility] [address] [place] [address] Additional Instructions: Llame al doctor nombrado abajo (Referral Sources) MAANA y arin maximiliano IRENE PARA DENTRO DE MAXIMILIANO SEMANA. Dgale a la secretaria que nosotros le instruimos hacer esta irene.Avise o llame si garza condicin se empeora antes de la irene. NICHOLAS MARKS MD Sep 26, 2018 15:36
[2018-09-26 15:44] VITALS: BP 138/68; PULSE 71; RESP 18
== END 2018-09-26 15:45 | disposition home or self-care (01) ==
LOC: E/R 12:32
DX: J20.9 Acute bronchitis, unspecified (principal)
CPT/HCPCS: 99283

== ENCOUNTER 2019-04-06 12:53 | Emergency (ER) | payer MEDICAID ==
[~2019-04-06] VITALS: Ht 149.9 cm; Wt 77.7 kg
[~2019-04-06 12:53] MED LIST changes: +ALBU18HF INHALATION; +FLUT9.9S NASAL; +ONDA4TAB14 PO
[2019-04-06 13:14] VITALS: Ht 149.9 cm; Wt 77.7 kg
[2019-04-06] MEDS ORDERED: ONDANSETRON (ODT) 4 MG TAB ODT STA (15:52)
[2019-04-06] MEDS: IBUPROFEN 800 MG TAB PO ONE ×2 (16:40→16:43)
[2019-04-06 16:50] VITALS: BP 130/80; PULSE 55; RESP 18
[2019-04-06] MEDS ORDERED: ACETAMINOPHEN 325 MG TAB PO ONE (17:00)
== END 2019-04-06 16:51 | disposition home or self-care (01) ==
LOC: E/R 12:53
DX: R10.13 Epigastric pain (principal); R11.2 Nausea with vomiting, unspecified
CPT/HCPCS: 36415; 76705; 80053; 81001; 83690; 84703; 85025; Z7502; Z7610